=== PATIENT | female | born 1970 | race Caucasian/White ===

== ENCOUNTER 2020-07-25 10:26 | Day surgery (SDC) | payer OTHER, SELFPAY ==
[~2020-07-25] VITALS: Ht 160 cm; Wt 68.0 kg
[2020-07-25] MEDS ORDERED: fentaNYL citrate 0.05 MG/ML VIAL ONE (12:56)
[2020-07-25] MEDS ORDERED: MIDAZOLAM 5 MG/5 ML VIAL ONE (12:57)
[2020-07-25] MEDS ORDERED: LIDOCAINE 2% 100 MG/5 ML UJET TP ONE ×2 (13:10→13:50)
[2020-07-25] MEDS ORDERED: fentaNYL citrate 0.05 MG/ML VIAL IVP ONE (14:00)
== END 2020-07-25 14:00 | disposition home or self-care (01) ==
LOC: MDS 10:26 → MMU 10:40 → MDS 14:00
PROVIDERS: ATTEND Internal Medicine Gastroenterology
DX: Z12.11 Encounter for screening for malignant neoplasm of colon (principal); K21.9 Gastro-esophageal reflux disease without esophagitis; Z79.899 Other long term (current) drug therapy
CPT/HCPCS: 45378; 87426; J2250; J3010